=== PATIENT | female | born 1955 | race Caucasian/White ===

== ENCOUNTER 2018-09-11 16:09 | Inpatient (IN) | payer MEDICAID ==
[~2018-09-11] VITALS: Ht 157.5 cm; Wt 77.1 kg
--- NOTE | ~2018-09-11 | CON ---
[facility] [address] [place] [address] CONSULTATION Name: ROBERT FELDMAN Room: [address] IN M.R.#: [id number] Admission: 09/11/18 Attend Phys: Rosailo Rios MD Discharge: Date of : 55 Report #: [id number] THIS REPORT FOR: //name// CC: ROSALIO Mazariegos DO DATE OF SERVICE: 09/12/2018 REFERRING PHYSICIAN: Rosalio Rios M.D. REASON FOR CONSULTATION: Abdominal pain and bleeding. IMPRESSION: 1. Acute left lower quadrant pain associated with diarrhea. 2. Abnormal CAT scan demonstrated left-sided colitis - suspect ischemic colitis versus less likely Crohn's, most likely colitis or tumor. 3. History of peptic ulcer disease and reflux, well controlled on omeprazole. 4. History of hepatitis C infection, which has apparently resolved spontaneously per the patient, with the patient having undergone repeated studies that demonstrated no evidence for viral replication - risk factors for hepatitis C include remote use of drugs in the past. 5. History of sciatica, requiring intermittent Medrol Dosepak and requiring narcotics, including hydrocodone 10/325 up to 3-4 times a day. RECOMMENDATIONS: 1. We will proceed with bowel preparation over the next couple of days. 2. We will proceed with upper and lower endoscopy on Friday afternoon. 3. We will check labs to ensure that hepatitis C is completely resolved. 4. We will review old records from [facility] where she was recently admitted to the hospital earlier this month with problems related to acute left lower quadrant pain associated with diarrhea and abnormal CAT scan demonstrating left-sided colitis. I have discussed these plans with the patient as well and she is agreeable to the same. HISTORY OF PRESENT ILLNESS: The patient is a 63-year old white female who presented to the Emergency Room with complaints of worsening left lower quadrant pain with associated loose stools and some mild rectal bleeding. She had been seen earlier in the month with rather similar-type complaints at [facility] and left AMA secondary to poor pain control. When she has this episode of severe pain, she gets a problems with being a little more constipated for a few days and then had problems with severe abdominal pain associated with diarrhea. She has never had any in the past. She denies any fevers [place] [address] CONSULTATION Name: ROBERT FELDMAN Room: [address] IN [facility]#: [id number] Admission: 09/11/18 Attend Phys: Rosalio Rios MD Discharge: Date of : 55 Report #: [id number] any major issues referable to her lower GI tract usually. She has undergone endoscopic evaluation of the upper GI tract in the past, but that has been a number of years, if at all and she has never had a colonoscopy in the past. She is now admitted for further evaluation and treatment. DRUG ALLERGIES: None. MEDICATIONS: At home include hydrocodone, alprazolam, omeprazole, gabapentin and levothyroxine. PAST MEDICAL HISTORY: Remarkable for hypertension, anxiety and chronic acid reflux. She has some problems with peripheral neuropathy and sciatica. She has chronic pain syndrome. She had previous cholecystectomy. She has history of ulcers and history of hepatitis C, as I mentioned above. SOCIAL HISTORY: The patient smokes up to half a pack to a pack per day and drinks only occasional alcohol. Does smoke marijuana and history of remote cocaine use. FAMILY HISTORY: Negative. PHYSICAL EXAMINATION: GENERAL: Pleasant 63-year-old white female, who is in no major distress. CARDIOPULMONARY EXAMINATION: Revealed a regular rate and rhythm. LUNGS: Clear. ABDOMEN: Soft. She is mildly tender in the left lower quadrant. No rebound or guarding noted. LABORATORY DATA: Her laboratory test revealed a white count of 6.1, hemoglobin 14.2, platelet count 436,000, MCV is 88.2 and RDW 14.5. Her sodium is 138, potassium 4.2, chloride 103, bicarbonate 28, BUN 10, creatinine is 0.7 and her GFR is 85. Total bilirubin is 0.2, alkaline phosphatase 74, AST 12 and ALT 13 and albumin is 3.0. CT scan reviewed and revealed evidence for thickening of the left-sided colon, suspicious for ischemia. She does have post-surgical changes noted, compatible with her gallbladder being removed. Otherwise, her CT was unremarkable. DISCUSSION: At the present time, I suspect the patient had a bout of ischemic colitis. We will proceed with endoscopic evaluation of her upper and lower GI tract in a couple of days and make further recommendations thereafter. By: [id number] Mir DO /joselin
--- NOTE | ~2018-09-11 | PROC ---
[address] [address] PROCEDURE REPORT Name: ROBERT FELDMAN Room: [address] IN M.R.#: [id number] Admission: 09/11/18 Attend Phys: Agus Rios MD Discharge: 09/15/18 Date of : 55 Report #: [id number] THIS REPORT FOR: //name// For GI report, Please see the Provation report in Perceptive 7 content. By: [id number] Records Staff TITA /ASHA
[2018-09-11 16:09] VITALS: BP 126/84
[~2018-09-11 16:09] MED LIST: ALPRAZOLAM ER1 MG PO; ALPRAZOLAM1 M1 PO; ATORVASTATIN CA40 MG PO; AUGMENTIN 500-1 EACH PO; BUPROPION; CELEXA; HYDROXYZINE HCL25 M2 GT; LEXAPRO20 MG PO; LOTENSIN10 MG PO; MEDROLDOSEPACK PO; METFORMIN; NORCO 5-325 TA1 EACH PO; OMEPRAZOLE 20 M20 M1 PO; PENICILLIN VK500 MG PO; PREDNISONE 10 M10 M1 PO; SYNTHROID; SYNTHROID25 MC1 PO; VICODIN 5-5001 EACH PO; ZOCOR; ZOCOR 20 MG TAB20 M1 PO
[2018-09-11] MEDS ORDERED: GABAPENTIN 100100 MG PO (16:12)
[2018-09-11 16:58] LABS: ABSOLUTE EOSINOPHILS 0.2 thou/uL (0.0-0.7); ABSOLUTE MONOCYTES 1.1 thou/uL (0.0-1.2); ABSOLUTE NEUTROPHILS 2.8 thou/uL (1.6-8.1); BASOPHILS 0.2 %; EOSINOPHILS 3.2 %; HEMATOCRIT 42.7 % (37.0-47.0); HEMOGLOBIN 14.2 gm/dL (12.0-15.0); LYMPHOCYTES 33.2 %; MCH 29.3 pg (26.0-34.0); MCHC 33.2 g/dL (28.0-37.0); MCV 88.2 fL (80.0-100.0); MONOCYTES 17.5 %; NUCLEATED RBCS 0 /100WBC; PLATELET COUNT* 436 thou/uL (150-400); POLYS 45.9 %; RBC 4.84 mil/uL (4.20-5.00); RDW-CV 14.5 % (10.5-14.5); WBC 6.1 thou/uL (4.0-11.0)
[2018-09-11 17:09] LABS: ANION GAP 7 mmol/L (7-16); BUN 10 mg/dL (7-18); CALCIUM 8.9 mg/dL (8.5-10.1); CHLORIDE 103 mmol/L (98-107); CO2 28 mmol/L (21-32); CREATININE 0.7 mg/dL (0.6-1.3); GLUCOSE 133 mg/dL (70-99); POTASSIUM 4.2 mmol/L (3.5-5.1); SODIUM 138 mmol/L (136-145)
[2018-09-11 17:16] LABS: ALKALINE PHOSPHATASE 74 U/L (46-116); LIPASE 87 U/L (73-393); SGOT 12 U/L (15-37); SGPT 13 U/L (30-65); TOTAL BILIRUBIN 0.2 mg/dL (<0.1-1.0); TOTAL PROTEIN 6.6 g/dL (6.4-8.2); TROPONIN-I LEVEL <0.06 ng/mL (<0.06)
[2018-09-11 21:15] VITALS: BP 139/75
[2018-09-11 21:30] VITALS: BP 105/69
[2018-09-12 08:50] VITALS: BP 129/78
[2018-09-12 12:00] VITALS: BP 150/73
[2018-09-12 12:36] LABS: URINE BILIRUBIN NEGATIVE (Negative); URINE BLOOD NEGATIVE (Negative); URINE CLARITY CLEAR; URINE COLOR YELLOW; URINE GLUCOSE-RANDOM NEGATIVE (Negative); URINE KETONES NEGATIVE (Negative); URINE LEUKOCYTES-REFLEX NEGATIVE (Negative); URINE NITRITE-REFLEX NEGATIVE (Negative); URINE PROTEIN NEGATIVE (Negative); URINE SPECIFIC GRAVITY 1.025 (1.005-1.030)
[2018-09-12 12:42] LABS: AMP/METHAMP Negative (Negative); BARBITURATES Negative (Negative); BENZODIAZEPINES POSITIVE (Negative); COCAINE Negative (Negative); METHADONE Negative (Negative); OPIATES Negative (Negative); PCP Negative (Negative); THC POSITIVE (Negative)
[2018-09-12 16:00] VITALS: BP 115/73
[2018-09-12 20:00] VITALS: BP 144/74
[2018-09-13 04:23] LABS: ABSOLUTE BASOPHILS 0.1 thou/uL (0.0-0.2); ABSOLUTE EOSINOPHILS 0.1 thou/uL (0.0-0.7); ABSOLUTE LYMPHOCYTES 2.3 thou/uL (0.8-5.3); ABSOLUTE NEUTROPHILS 3.3 thou/uL (1.6-8.1); BASOPHILS 0.9 %; EOSINOPHILS 2.1 %; HEMATOCRIT 41.5 % (37.0-47.0); HEMOGLOBIN 13.5 gm/dL (12.0-15.0); MCH 28.8 pg (26.0-34.0); MCHC 32.6 g/dL (28.0-37.0); MCV 88.5 fL (80.0-100.0); MONOCYTES 14.6 %; MPV 8.3 fl. (7.2-11.1); NUCLEATED RBCS 0 /100WBC; PLATELET COUNT* 491 thou/uL (150-400); POLYS 48.4 %; WBC 6.7 thou/uL (4.0-11.0)
[2018-09-13 04:54] LABS: ALBUMIN 2.8 g/dL (3.4-5.0); CALCIUM 8.8 mg/dL (8.5-10.1); CREATININE 0.9 mg/dL (0.6-1.3); MAGNESIUM 1.6 mg/dL (1.8-2.4); POTASSIUM 3.8 mmol/L (3.5-5.1); TOTAL BILIRUBIN 0.3 mg/dL (<0.1-1.0); TOTAL PROTEIN 6.5 g/dL (6.4-8.2)
[2018-09-13 05:55] LABS: ESR (SEDRATE) 29 mm/hr (0-30)
[2018-09-13 08:20] VITALS: BP 140/69
--- NOTE | 2018-09-13 15:33 | EKG ---
[place] [address] ELECTROCARDIOGRAM REPORT Name: ROBERT FELDMAN Room: [address] ADM IN [facility].#: [id number] Admission: 09/11/18 Attend Phys: Agus Rios MD Discharge: Date of : 55 Report #: [id number] THIS REPORT FOR: //name// [facility] ED Test Date: 2018-09-11 Test Time: 16:44:30 Pat Name: ROBERT FELDMAN Department: Room: [facility] Gender: F Printer'S Assistant: Maciej ROSE : 1955 Requested By: Abigail Pugh Order Number: [id number] MD: Buster Doe Measurements Intervals [place] Rate: 80 P: -11 NC: 112 QRS: 56 QRSD: 106 T: 15 QT: 371 QTc: 428 Interpretive Statements Sinus rhythm Borderline short NC interval Low voltage, precordial leads RSR' in V1 or V2, right VCD or RVH Baseline wander in lead(s) V2 No previous ECG available for comparison Electronically Signed On 09-13-2018 15:33:23 BEHAVIORAL MODIFICATION ASSISTANT by Buster Doe [email or web address] <ELECTRONICALLY SIGNED> By: Buster Doe MD, FACC 09/13/18 1533 1644 1644 Buster Doe MD, FACC /EPI
[2018-09-13 16:46] VITALS: BP 124/71
[2018-09-13 20:13] VITALS: BP 123/69
[2018-09-14 07:07] LABS: ABSOLUTE BASOPHILS 0.1 thou/uL (0.0-0.2); ABSOLUTE EOSINOPHILS 0.1 thou/uL (0.0-0.7); ABSOLUTE LYMPHOCYTES 2.4 thou/uL (0.8-5.3); ABSOLUTE MONOCYTES 0.9 thou/uL (0.0-1.2); ABSOLUTE NEUTROPHILS 2.7 thou/uL (1.6-8.1); BASOPHILS 1.4 %; EOSINOPHILS 2.2 %; HEMATOCRIT 41.8 % (37.0-47.0); HEMOGLOBIN 13.6 gm/dL (12.0-15.0); MCH 28.6 pg (26.0-34.0); MCHC 32.4 g/dL (28.0-37.0); MCV 88.1 fL (80.0-100.0); MONOCYTES 14.1 %; MPV 8.1 fl. (7.2-11.1); NUCLEATED RBCS 0 /100WBC; PLATELET COUNT* 455 thou/uL (150-400); POLYS 43.3 %; RBC 4.74 mil/uL (4.20-5.00); WBC 6.1 thou/uL (4.0-11.0)
[2018-09-14 07:14] LABS: CALCIUM 9.2 mg/dL (8.5-10.1); CREATININE 0.7 mg/dL (0.6-1.3); POTASSIUM 3.8 mmol/L (3.5-5.1)
[2018-09-14 07:49] VITALS: BP 108/77
[2018-09-14 08:10] VITALS: BP 123/69
[2018-09-14 08:13] VITALS: BP 123/69
[2018-09-14 15:01] VITALS: BP 108/77
[2018-09-14 21:06] LABS: HCV QUANT BY PCR HCV Not Detected IU/mL (())
[2018-09-15] VITALS: BP 122/68
[2018-09-15 05:07] LABS: CALCIUM 9.3 mg/dL (8.5-10.1); CREATININE 0.7 mg/dL (0.6-1.3); MAGNESIUM 1.9 mg/dL (1.8-2.4); POTASSIUM 3.9 mmol/L (3.5-5.1)
[2018-09-15 07:45] VITALS: BP 139/82
[2018-09-15] MEDS ORDERED: NORCO 10-325 T1 EACH PO (10:14)
[2018-09-15 11:47] VITALS: BP 108/77
[2018-09-15 12:16] VITALS: BP 108/77
[2018-09-15 15:25] VITALS: BP 108/77
--- NOTE | 2018-09-17 13:07 | PATH ---
[address] [address] PATHOLOGY RPT PROCEDURE Name: SKYE MASON Room: [address] IN .R.#: [id number] Admission: 09/11/18 Date of : 55 Discharge: 09/15/18 Report #: [id number] Path Case #: [id number] [facility] Accession Number: [id number] . 01 Material submitted: . PART A: ANTRAL BIOPSY FOR H-PYLORI PART B: BIOPSY SEVERE ULCERATION SIGMOID COLON PART C: DISTAL SIGMOID COLON POLYP . 01 Clinical history: . None provided . 02 Diagnosis: A. Antral biopsy: - Moderate non-specific active gastritis, negative for Helicobacter pylori organisms, granulomas and dysplasia. . B. Biopsy severe ulceration sigmoid colon: - Non-specific active colitis with ulceration, negative for granulomas, viral inclusions and dysplasia. See comment. . C. Distal sigmoid colon polyp: - Tubular adenoma, negative for high grade dysplasia. [facility]/09/15/2018 . 02 Comment: The sigmoid colon ulceration biopsy (B) shows several fragments of near normal to minimally inflamed colonic mucosa as well as fragments showing evidence of severe active inflammation and ulceration where there is some crypt distortion but no significant basal lymphoplasmacytosis to elevate a suspicion for inflammatory bowel disease although this possibility cannot be excluded. (ELADIO/db; 09/15/2018) . Special stain on A: H. pylori . 02 Electronically signed: . Checo Delaney MD, Pathologist NPI- [id number] . 01 Gross description: . A. Received in formalin labeled "Skye Mason, antral biopsy for H. pylori," is a single segment of joshi soft tissue measuring 0.5 cm in maximum dimension. The specimen is entirely submitted in cassette A1. . B. Received in formalin labeled "Skye Mason, biopsy severe ulceration sigmoid colon," are multiple segments of joshi soft tissue measuring 1.1 x 0.3 x 0.1 cm in aggregate dimensions. [place] [address] PATHOLOGY RPT PROCEDURE Name: SKYE MASON Room: [address] IN M.R.#: [id number] Admission: 09/11/18 Date of : 55 Discharge: 09/15/18 Report #: [id number] Path Case #: [id number] filtered and entirely submitted in cassette B1. . C. Received in formalin labeled "Skye Mason, distal sigmoid colon polyp," is a 0.8 x 0.5 x 0.4 cm polypoid piece of joshi soft tissue. The margin is inked and the specimen is sectioned perpendicular to the margin and entirely submitted in cassette C1. (TSD; 09/14/2018) TOB/TOB . 02 Pathologist provided ICD-10: K29.70, K52.9, D12.5 . 02 CPT . 533867, 380197, 594277, K11323 Specimen Comment: A courtesy copy of this report has been sent to Specimen Comment: [phone], , . Specimen Comment: Report sent to ,DR COBB / DR LIMA Specimen Comment: A duplicate report has been generated due to demographic updates. Performed at: 01 [facility] [address], [place], [place] [id number] MD Raudel Villa MD Phone: [phone] Performed at: 02 [facility] [place] [address], [place], [place] [id number] MD Checo Delaney MD Phone: [phone]
== END 2018-09-15 13:10 | disposition home or self-care (01) | DRG 394 ==
LOC: M.ERS 16:09 → M.TBA-ER 19:49 → M.3W 19:49 → M.TBA 09-14 09:25 → M.3W 09-14 09:30
PROVIDERS: Internal Medicine; Internal Medicine Gastroenterology; Nurse Practitioner Family; ADMIT Internal Medicine
PROC: 0DBP8ZZ Excision of Rectum, Via Natural or Artificial Opening Endoscopic (ICD-10-PCS; principal; 2018-09-14)
PROC: 0DB68ZX Excision of Stomach, Via Natural or Artificial Opening Endoscopic, Diagnostic (ICD-10-PCS; principal; 2018-09-14)
PROC: 0DBN8ZX Excision of Sigmoid Colon, Via Natural or Artificial Opening Endoscopic, Diagnostic (ICD-10-PCS; principal; 2018-09-14)
DX: K55.9 Vascular disorder of intestine, unspecified (principal); E44.1 Mild protein-calorie malnutrition; I10 Essential (primary) hypertension; E03.9 Hypothyroidism, unspecified; F41.9 Anxiety disorder, unspecified; K21.9 Gastro-esophageal reflux disease without esophagitis; G62.9 Polyneuropathy, unspecified; G89.4 Chronic pain syndrome; F17.210 Nicotine dependence, cigarettes, uncomplicated; F12.90 Cannabis use, unspecified, uncomplicated; K27.9 Peptic ulcer, site unspecified, unspecified as acute or chronic, without hemorrhage or perforation; E66.9 Obesity, unspecified; K44.9 Diaphragmatic hernia without obstruction or gangrene; K64.4 Residual hemorrhoidal skin tags; K57.30 Diverticulosis of large intestine without perforation or abscess without bleeding; K63.5 Polyp of colon; Z28.21 Immunization not carried out because of patient refusal; Z90.49 Acquired absence of other specified parts of digestive tract; Z86.19 Personal history of other infectious and parasitic diseases; Z68.31 Body mass index [BMI] 31.0-31.9, adult

== ENCOUNTER 2018-10-10 01:17 | Inpatient (IN) | payer MEDICAID ==
[~2018-10-10] VITALS: Ht 157.5 cm; Wt 80.7 kg
[~2018-10-10 01:17] MED LIST changes: +GABAPENTIN 100100 MG PO; +NORCO 10-325 T1 EACH PO
[2018-10-10 01:18] VITALS: BP 143/86
[2018-10-10] MEDS ORDERED: CRESTOR20 MG PO (01:24)
[2018-10-10] MEDS ORDERED: MIRALAX17 GM PO (01:25)
[2018-10-10 02:30] LABS: ABSOLUTE BASOPHILS 0.1 thou/uL (0.0-0.2); ABSOLUTE EOSINOPHILS 0.6 thou/uL (0.0-0.7); ABSOLUTE LYMPHOCYTES 4.2 thou/uL (0.8-5.3); ABSOLUTE NEUTROPHILS 3.5 thou/uL (1.6-8.1); BASOPHILS 1.2 %; HEMATOCRIT 43.9 % (37.0-47.0); HEMOGLOBIN 14.4 gm/dL (12.0-15.0); LYMPHOCYTES 44.7 %; MCHC 32.8 g/dL (28.0-37.0); MCV 88.7 fL (80.0-100.0); MONOCYTES 10.9 %; MPV 8.1 fl. (7.2-11.1); NUCLEATED RBCS 0 /100WBC; PLATELET COUNT* 223 thou/uL (150-400); POLYS 37.2 %; RBC 4.95 mil/uL (4.20-5.00); RDW-CV 14.2 % (10.5-14.5); WBC 9.5 thou/uL (4.0-11.0)
[2018-10-10 02:48] LABS: CALCIUM 10.2 mg/dL (8.5-10.1); CREATININE 0.5 mg/dL (0.6-1.3); POTASSIUM 4.7 mmol/L (3.5-5.1)
[2018-10-10 02:53] LABS: ALBUMIN 3.4 g/dL (3.4-5.0); TOTAL BILIRUBIN 0.3 mg/dL (<0.1-1.0); TOTAL PROTEIN 6.5 g/dL (6.4-8.2)
[2018-10-10 03:57] LABS: URINE BILIRUBIN NEGATIVE (Negative); URINE BLOOD NEGATIVE (Negative); URINE CLARITY CLEAR; URINE COLOR YELLOW; URINE GLUCOSE-RANDOM NEGATIVE (Negative); URINE KETONES NEGATIVE (Negative); URINE LEUKOCYTES-REFLEX NEGATIVE (Negative); URINE NITRITE-REFLEX NEGATIVE (Negative); URINE PROTEIN NEGATIVE (Negative); URINE UROBILINOGEN 0.2 E.U./dl (0.2-1.0)
[2018-10-10 04:12] LABS: AMP/METHAMP POSITIVE (Negative); BARBITURATES Negative (Negative); BENZODIAZEPINES POSITIVE (Negative); COCAINE Negative (Negative); METHADONE Negative (Negative); OPIATES Negative (Negative); PCP Negative (Negative); THC POSITIVE (Negative)
[2018-10-10 07:46] VITALS: BP 111/73
[2018-10-10 13:46] LABS: CREATININE 0.7 mg/dL (0.6-1.3); MAGNESIUM 1.6 mg/dL (1.8-2.4); POTASSIUM 3.9 mmol/L (3.5-5.1)
[2018-10-11 16:45] VITALS: BP 144/80
[2018-10-12 08:15] VITALS: BP 140/78
[2018-10-12 08:38] LABS: CALCIUM 9.4 mg/dL (8.5-10.1); CREATININE 0.8 mg/dL (0.6-1.3)
[2018-10-12] MEDS ORDERED: LEVAQUIN 750 M750 MG PO (10:28)
[2018-10-12] MEDS ORDERED: NORCO 5-325 TA1 EACH PO (10:28)
[2018-10-12] MEDS ORDERED: METRONIDAZOLE500 M4 PO (10:28)
[2018-10-12 12:13] VITALS: BP 140/78
[2018-10-12] MEDS ORDERED: TYLENOL325 MG PO (12:23)
[2018-10-12 14:20] VITALS: BP 140/78
--- NOTE | 2018-10-15 14:51 | CON ---
[facility] [address] [place] [address] CONSULTATION Name: ROBERT FELDMAN Room: [address] IN M.R.#: [id number] Admission: 10/10/18 Attend Phys: Shoaib Meehan MD Discharge: 10/12/18 Date of : 55 Report #: [id number] THIS REPORT FOR: //name// CC: Kimberley Meehan MD DATE OF SERVICE: 10/10/2018 REQUESTING PHYSICIAN: Shoaib Meehan M.D. REASON FOR CONSULTATION: Colitis. HISTORY OF PRESENT ILLNESS: This is a 63-year-old female who was hospitalized a month ago for abdominal pain, diarrhea and colitis per CT and colonoscopy. The biopsies were consistent with colonic ischemia. She had severe inflammation at that time to a point that Dr. Mir did not feel safe to complete her colonoscopy fearing perforation. The patient then went home and was on pain medication. Naturally, this had caused her to have some constipation. Even though she was taking MiraLax 17 grams daily, but she was producing just a small amount of stool per day. She reports that she never felt better and continued to have abdominal pain. The patient then returned to hospital as her pain was in resolving. Upon hospitalization, she had a repeat CAT scan, which showed persistent inflammation in the right and left colon. This was consistent with previous imaging studies. Currently, she is on Flagyl and Levaquin and on low-residue diet. She denies any hematochezia or melena. Her abdomen is less distended compared to yesterday. PAST MEDICAL HISTORY: Significant for history of colonic ischemia, hypertension, hypothyroidism, anxiety, gallbladder disease status post cholecystectomy, peptic ulcer disease, GERD, history of hep C which has resolved on its own and sciatic nerve pain. ALLERGIES: No known drug allergy. MEDICATIONS: Please refer to MAR. SOCIAL HISTORY: The patient admits to tobaccoism and occasionally have alcoholic beverage. FAMILY HISTORY: [place] [address] CONSULTATION Name: ROBERT FELDMAN Room: [address]#: [id number] Admission: 10/10/18 Attend Phys: Shoaib Meehan MD Discharge: 10/12/18 Date of : 55 Report #: [id number] PHYSICAL EXAMINATION: VITAL SIGNS: Reveals blood pressure of 111/73, respirations 16, pulse 83 and temperature 97.9. LUNGS: Clear. CARDIOVASCULAR: Regular. ABDOMEN: Soft, tender to palpation in the left upper and lower quadrants. Bowel sounds are positive. NEUROLOGICAL: The patient is alert and oriented x 3. LABORATORY DATA: Labs reveal sodium of 139, potassium 3.9, BUN is 12, creatinine 0.7 and glucose 161. AST is 17, ALT 15 and alkaline phosphatase 79. WBC is 9.5 and hemoglobin is 14.4 with platelet of 23. RADIOLOGICAL DATA: As discussed above. ASSESSMENT AND PLAN: The patient with a history of colonic ischemia, which appears to be persisting. We will place the patient on MiraLax b.i.d. Continue IV antibiotics for the next couple of days and then send her home with p.o. antibiotics for 10 days. We still repeat her colonoscopy in 6-8 weeks. <ELECTRONICALLY SIGNED> By: Janey Barclay MD 10/15/18 1451 1551 [id number] Barclay MD /nt
== END 2018-10-12 14:23 | disposition home or self-care (01) | DRG 392 ==
LOC: M.ERS 01:17 → M.TBA-ER 05:53 → M.ORTHSURG 05:53
PROVIDERS: Internal Medicine; Personal Emergency Response Attendant; ADMIT Internal Medicine
DX: K52.89 Other specified noninfective gastroenteritis and colitis (principal); I10 Essential (primary) hypertension; E03.9 Hypothyroidism, unspecified; F41.9 Anxiety disorder, unspecified; E86.0 Dehydration; Z79.899 Other long term (current) drug therapy; K21.9 Gastro-esophageal reflux disease without esophagitis; F17.210 Nicotine dependence, cigarettes, uncomplicated; Z87.11 Personal history of peptic ulcer disease; Z90.49 Acquired absence of other specified parts of digestive tract; Z86.19 Personal history of other infectious and parasitic diseases